=== PATIENT | male | born 1990 | race African-American/Black ===

== ENCOUNTER 2017-11-20 22:34 | Emergency (ER) | payer SELFPAY ==
[~2017-11-20] VITALS: Ht 180.3 cm; Wt 86.6 kg
[~2017-11-20 22:34] MED LIST: KEFLEX500 MG PO; MOTRIN800 MG PO; NOHOMEMEDS; PERCOCET 5/31 TABLET PO
[2017-11-21] MEDS ORDERED: KEFLEX500 MG PO (00:51)
[2017-11-21 02:00] VITALS: BP 132/88
== END 2017-11-21 02:00 | disposition home or self-care (01) ==
LOC: EME 22:34
DX: S61.411A Laceration without foreign body of right hand, initial encounter (principal); F17.200 Nicotine dependence, unspecified, uncomplicated; Z23 Encounter for immunization; W22.09XA Striking against other stationary object, initial encounter; W25.XXXA Contact with sharp glass, initial encounter
CPT/HCPCS: 73130; 99281; 99285

== ENCOUNTER 2017-12-04 12:46 | Emergency (ER) | payer SELFPAY ==
[~2017-12-04] VITALS: Ht 177.8 cm; Wt 80.4 kg
[2017-12-04 12:51] VITALS: BP 123/82
== END 2017-12-04 14:12 | disposition home or self-care (01) ==
LOC: EME 12:46
DX: S61.411D Laceration without foreign body of right hand, subsequent encounter (principal); F17.200 Nicotine dependence, unspecified, uncomplicated
CPT/HCPCS: 99281; 99283

== ENCOUNTER 2018-07-17 12:30 | Emergency (ER) | payer SELFPAY ==
[~2018-07-17] VITALS: Ht 180.3 cm; Wt 78.1 kg
[2018-07-17] MEDS ORDERED: FLEXERIL10 MG PO (15:28)
[2018-07-17] MEDS ORDERED: MOTRIN800 MG PO (15:28)
[2018-07-17 15:50] VITALS: BP 124/86
== END 2018-07-17 15:45 | disposition home or self-care (01) ==
LOC: EME 12:30
DX: S46.911A Strain of unspecified muscle, fascia and tendon at shoulder and upper arm level, right arm, initial encounter (principal); X50.0XXA Overexertion from strenuous movement or load, initial encounter
CPT/HCPCS: 73030; 99281; 99283